=== PATIENT | male | born 1950 | race Two or more races ===

== ENCOUNTER 2022-07-13 23:20 | Emergency (ER) | payer OTHER ==
[~2022-07-13] VITALS: Ht 172.7 cm; Wt 84.8 kg
[2022-07-14] MEDS ORDERED: ZOLOFT25 MG PO (01:31)
[2022-07-14] MEDS ORDERED: VISTARIL50 MG PO (01:38)
[2022-07-14] MEDS ORDERED: MIRALAX510 GM PO (01:38)
== END 2022-07-14 01:44 ==
LOC: ER 23:20
DX: F41.9 Anxiety disorder, unspecified (principal); F41.0 Panic disorder [episodic paroxysmal anxiety]; E11.9 Type 2 diabetes mellitus without complications; I10 Essential (primary) hypertension

== ENCOUNTER → 2022-07-14 | Emergency (ER) | payer OTHER ==
[~2022-07-14] MED LIST: MIRALAX510 GM PO; VISTARIL50 MG PO; ZOLOFT25 MG PO
== END | disposition home or self-care (01) ==
LOC: ER 05:02
DX: F41.0 Panic disorder [episodic paroxysmal anxiety] (principal)